=== PATIENT | female | born 1985 | race Caucasian/White ===

== ENCOUNTER 2017-01-06 23:33 | Inpatient (IN) | payer BC ==
[~2017-01-06] VITALS: Ht 157.5 cm; Wt 54.0 kg
[2017-01-06 23:38] VITALS: BP 114/77
--- NOTE | 2017-01-07 00:21 | NUR ---
PT TAKEN TO BED 4
--- NOTE | 2017-01-07 01:01 | NUR ---
31Y/F PATIENT PRESENTS TO ED WITH C/O RT. FLANK PAIN X 1 WK . PT STATES RT LOWER ABD PAIN X 1WK, CHILLS, FEVER TODAY.DENIES N/V/D; SKIN IS PINK/WARM/DRY; AAOX4 WITH EVEN AND STEADY GAIT; LUNGS CLEAR BL; HR EVEN AND REGULAR; PT DENIES ANY FEVER, CP, SOB, OR COUGH AT THIS TIME; PATIENT STATES PAIN OF 9/10 AT THIS TIME; VSS; PATIENT POSITIONED FOR COMFORT; HOB ELEVATED; BEDRAILS UP X2; BED DOWN. ER MD MADE AWARE OF PT STATUS.
--- NOTE | 2017-01-07 01:16 | NUR ---
Dr. Saavedra evaluating patient at bedside.
[2017-01-07] MEDS ORDERED: NACL 0.9% 1,000 ML IV ONE (01:18)
[2017-01-07] MEDS ORDERED: ONDANSETRON 4 MG/2 ML VIAL IVP ONE ×2 (01:20→03:05)
[2017-01-07] MEDS ORDERED: MORPHINE SULFATE 4 MG/ML SYR IVP ONE ×2 (01:20→03:05)
--- NOTE | 2017-01-07 02:04 | NUR ---
PT RETURN FROM CT
[2017-01-07] MEDS ORDERED: PIPERACILLIN/TAZOBACTAM 3.375 GM in DEXTROSE 5% 50 ML IV ONE (03:15)
[2017-01-07] MEDS ORDERED: PIPERACILLIN/TAZOBACTAM 3.375 GM VIAL IV ONE (03:25)
[2017-01-07] MEDS ORDERED: metroNIDAZOLE 500 MG/NS PREMIX 100 ML IV ONE (03:55)
[2017-01-07] MEDS ORDERED: ONDANSETRON 4 MG/2 ML VIAL IVP PRN (04:20)
[2017-01-07] MEDS ORDERED: MORPHINE SULFATE 2 MG/ML SYR IVP PRN ×3 (04:20→14:05)
[2017-01-07] MEDS ORDERED: HYDROcodone/APAP 5/325 MG 1 TAB TAB PO PRN (04:20)
[2017-01-07] MEDS ORDERED: ACETAMINOPHEN 325 MG TAB PO PRN (04:20)
--- NOTE | 2017-01-07 04:36 | NUR ---
Patient will be admitted to care of [facility]. Admited to TELEMETRY. Will go to [id number]. Belongings list completed. Report to GOLDIE BENOIT.
[2017-01-07 04:38] VITALS: BP 89/59
--- NOTE | 2017-01-07 04:38 | NUR ---
RECEIVED REPORT FROM ED RN FOR CONTINUITY OF CARE. 31 Y.O. FEMALE WITH DX: DIVERTICULITIS ADMITTED TO TELE UNIT. PATIENT IS A&OX4, DISCUSSED PLAN OF CARE, VERBALIZED UNDERSTANDING. SHIFT ASSESSMENT DONE, VS TAKEN, STABLE. NO S/S OF RESPIRATORY DISTRESS NOTED ON ROOM AIR. PATIENT DENIES PAIN AT THIS TIME. SKIN INTACT. ORIENTED PT TO ROOM. MRSA SWAB COLLECTED AND WRISTBANDS APPLIED. CALL LIGHT PLACED WITHIN REACH. WILL CONTINUE TO MONITOR.
[2017-01-07] MEDS ORDERED: PIPERACILLIN/TAZOBACTAM 2.25 GM in DEXTROSE 5% 50 ML IV SCH (05:00)
[2017-01-07] MEDS ORDERED: PIPERACILLIN/TAZOBACTAM 3.375 GM in DEXTROSE 5% 50 ML IV SCH (05:00)
[2017-01-07] MEDS: metroNIDAZOLE 500 MG/NS PREMIX 100 ML IV SCH ×3 (05:00→21:01)
[2017-01-07] MEDS: NACL 0.9% 1,000 ML IV SCH ×3 (05:10→21:40)
[2017-01-07] MEDS ORDERED: PIPERACILLIN/TAZOBACTAM 2.25 GM VIAL IV ONE (05:19)
--- NOTE | 2017-01-07 06:00 | NUR ---
PT IS RESTING IN BED. NO S/S OF DISTRESS OR DISCOMFORT NOTED. CALL LIGHT WITHIN REACH.
--- NOTE | 2017-01-07 07:24 | NUR ---
ENDORSED PATIENT TO DAY RN FOR CONTINUITY OF CARE, PATIENT IS IN STABLE CONDITION.
--- NOTE | 2017-01-07 07:53 | NUR ---
PATIENT HAS BEEN SCREENED AND CATEGORIZED MODERATE NUTRITION RISK. PATIENT WILL BE SEEN WITHIN 3-5 DAYS OF ADMISSION. 01/09/17-01/11/[address]
[2017-01-07 08:00] VITALS: BP 88/59
--- NOTE | 2017-01-07 08:00 | NUR ---
RECEIVED REPORT FROM OTILIO AMEZCUA FOR CONTINUITY OF CARE. PATIENT AWAKE A/OX4 NO S/S OF RESP DISTRESS NOTED ABLE TO MAKE NEEDS KNOWN. DENIES ANY PAIN. IV SITE LT AC GAUGE 20 INTACT AND PATENT, IVF INFUSING WELL. PLAN OF CARE DISCUSSED WITH THE PATIENT VITALS STABLE WILL CONTINUE TO MONITOR.
[2017-01-07] MEDS: LACTOBACILLUS RHAMNOSUS GG 1 EACH CAP PO SCH (09:00)
--- NOTE | 2017-01-07 09:20 | NUR ---
RECEIVED REPORT FROM GOLDIE LSAT, PTDaija DOUGHERTY, WILL CONTINUE TO MONITOR
--- NOTE | 2017-01-07 11:25 | NUR ---
CM NOTE PER ELECTRODE CLEANING MACHINE OPERATOR TANESHA EXT [phone], REVIEWS SHOULD BE SENT TO [employer] FAX# [phone] MAIN PHONE# [phone] ATTN: GOPI Andrade REF# [id number]. INITIAL REVIEW SENT TO [employer] FAX# [phone] MAIN PHONE# [phone] ATTN: GOPI Andrade REF# [id number].
--- NOTE | 2017-01-07 11:50 | NUR ---
CHECKED IN ON PATIENT, PT. RESTING COMFORTABLY, WILL CONTINUE TO MONITOR
[2017-01-07] MEDS: PIPER/TAZO 3.375GM/D5W PREMIX 50 ML IV SCH ×2 (12:16→20:04)
--- NOTE | 2017-01-07 12:34 | NUR ---
PT. STATES PAIN 01/11, CHECKED BP, BP 94/60, OFFERED PATIENT TYLENOL OR NORCO FOR PAIN HER BP IS TOO LOW FOR MORPHINE, PT. REFUSED MEDS
--- NOTE | 2017-01-07 13:49 | NUR ---
SPOKE WITH DR. SAUNDERS REGARDING PT. PAIN, HE WILL BE IN TO SPEAK TO PATIENT
[2017-01-07] MEDS: KETOROLAC 15 MG/ML VIAL IVP PRN (14:18)
--- NOTE | 2017-01-07 14:19 | NUR ---
GAVE REPORT TO SERAFIN RN, PT. STABLE
--- NOTE | 2017-01-07 14:23 | NUR ---
RECEIVED REPORT FROM RN. PT RESTING IN BED. NO S/S OF ACUTE DISTRESS. PT MEDICATED FOR PAIN. IV SITE PATENT AND INTACT. CALL LIGHT WITHIN REACH. SAFETY MEASURES WITHIN REACH. WILL CONTINUE TO MONITOR.
--- NOTE | 2017-01-07 14:25 | NUR ---
COMPLAIN OF PAIN MEDICATED WITH TORADOL 15 MG IVP VITALS STABLE 110/66
[2017-01-07 16:37] VITALS: BP 94/63
--- NOTE | 2017-01-07 19:12 | NUR ---
ENDORSED PLAN OF CARE TO NIGHT RN. PT REMAINS IN STABLE CONDITION.
--- NOTE | 2017-01-07 19:30 | NUR ---
RECEIVED REPORT FROM DAY RN AT BEDSIDE, PATIENT SLEEPING, EASILY AWOKEN, PATIENT IS AAO X4, ON ROOM AIR, NO SOB OR SIGN OF DISTRESS AT THIS TIME. PATIENT HAS IV TO LEFT HAND, PATENT AND INTACT WITH IVF INFUSING WELL, PATIENT IS AMBULATORY, DOES NOT COMPLAIN OF PAIN AT THIS TIME, DISCUSSED PLAN OF CARE WITH PATIENT, PATIENT VERBALIZED UNDERSTANDING, SAFETY MEASURES CHECKED, CALL LIGHT WITHIN REACH. WILL CONTINUE TO MONITOR. BP LOW AT 74/40 ALL OTHER VITALS STABLE, PATIENT ASYMPTOMATIC, WILL NOTIFY MD.
--- NOTE | 2017-01-07 19:55 | NUR ---
PAGED DR ARAIZA STEAM CRANE OPERATOR FOR DR PRADHAN, INFORMED OF PATIENT'S LOW BP AND THAT PATIENT IS ASYMPTOMATIC, STATED SHE WILL INCREASE THE FLUIDS, WILL FOLLOW UP WITH ORDERS.
--- NOTE | 2017-01-07 21:10 | NUR ---
ORDERED IV ABX ADMINISTERED PER MD ORDER, PATIENT RESTING IN BED WITH VISITORS AT BEDSIDE, PATIENT ALERT AND ORIENTED, NO SOB OR SIGN OF DISTRESS AT THIS TIME, CALL LIGHT WITHIN REACH. WILL CONTINUE TO MONITOR.
[2017-01-08] VITALS: BP 88/59
--- NOTE | 2017-01-08 00:10 | NUR ---
PATIENT SLEEPING, NO SOB OR SIGN OF DISTRESS, CALL LIGHT WITHIN REACH. WILL CONTINUE TO MONITOR.
[2017-01-08] MEDS: NACL 0.9% 1,000 ML IV SCH ×3 (01:56→20:26)
[2017-01-08] MEDS: KETOROLAC 15 MG/ML VIAL IVP PRN (01:57)
--- NOTE | 2017-01-08 02:20 | NUR ---
PATIENT SLEEPING, NO SOB OR SIGN OF DISTRESS AT THIS TIME, CALL LIGHT WITHIN REACH. WILL CONTINUE TO MONITOR.
--- NOTE | 2017-01-08 04:05 | NUR ---
PATIENT SLEEPING, NO SOB OR SIGN OF DISTRESS AT THIS TIME, CALL LIGHT WITHIN REACH. WILL CONTINUE TO MONITOR.
[2017-01-08] MEDS: PIPER/TAZO 3.375GM/D5W PREMIX 50 ML IV SCH ×3 (04:42→20:25)
[2017-01-08] MEDS: metroNIDAZOLE 500 MG/NS PREMIX 100 ML IV SCH ×3 (05:40→21:33)
--- NOTE | 2017-01-08 07:24 | NUR ---
ENDORSED PATIENT TO DAY RN AT BEDSIDE, PATIENT IN STABLE CONDITION.
--- NOTE | 2017-01-08 07:25 | NUR ---
RECEIVED REPORT FROM THE ASSISTANT MEN'S SOCCER COACH NURSE. PT IS ALERT AND ORIENTED. I INTRODUCED MYSELF AND UPDATED THE BOARD. V/S: 97.8F, 89/56; 64; 98%. PT HAD LOW BP ALL THROUGH OUT THE NIGHT PER ASSISTANT MEN'S SOCCER COACH NURSE. PT IS ASYMPTOMATIC. SKIN IS INTACT. IV L AC NS 150ML/HR. NO COMPLAINTS AT THIS TIME. WILL CONTINUE TO MONITOR PT.
[2017-01-08 08:00] VITALS: BP 89/56
--- NOTE | 2017-01-08 08:49 | NUR ---
GOPI NOTE CONCURRENT REVIEW SENT TO [employer] FAX# [phone] MAIN PHONE# [phone] ATTN: GOPI Andrade REF# [id number].
[2017-01-08] MEDS: LACTOBACILLUS RHAMNOSUS GG 1 EACH CAP PO SCH (08:58)
--- NOTE | 2017-01-08 09:01 | NUR ---
ADMINISTERED 1 ORAL MED W/ VERY LITTLE WATER. PT TOLERATED WELL. DENIES PAIN. CALL LIGHT WITHIN REACH. WILL CONTINUE TO MONITOR PT.
--- NOTE | 2017-01-08 11:00 | NUR ---
PT RESTING COMFORTABLY. BOYFRIEND AT BEDSIDE. PT IS DOING WELL. NO PAIN. WILL CONTINUE TO MONITOR PT.
--- NOTE | 2017-01-08 13:00 | NUR ---
ADMINISTERED ABX TO PT. PT TOLERATED WELL. WILL CONTINUE TO MONITOR PT.
--- NOTE | 2017-01-08 15:00 | NUR ---
PT IS SLEEPING. NO SIGNS OF DISTRESS. WILL CONTINUE TO MONITOR PT.
[2017-01-08 16:00] VITALS: BP 100/68
--- NOTE | 2017-01-08 17:00 | NUR ---
PT RESTING IN BED, VISITING WITH A FRIEND. PT HAS NO COMPLAINTS AT THIS TIME.
--- NOTE | 2017-01-08 19:00 | NUR ---
ENDORSED PT TO THE HOME IMPROVEMENT CONTRACTOR NURSE. PT WAS IN THE BATHROOM. PT IS IN STABLE CONDITION.
--- NOTE | 2017-01-08 19:45 | NUR ---
RECEIVED REPORT FROM DAY RN. PATIENT IS RESTING IN BED, PATIENT IS AAOX4 ON ROOM AIR, NO SOB OR SIGN OF DISTRESS AT THIS TIME. IV TO LEFT AC PATENT AND INTACT. SKIN INTACT, PATIENT DENIES PAIN AT THIS TIME, DISCUSSED PLAN OF CARE WITH PATIENT, PATIENT VERBALIZED UNDERSTANDING, CALL LIGHT WITHIN REACH. WILL CONTINUE TO MONITOR.
--- NOTE | 2017-01-08 21:35 | NUR ---
DUE MEDS ADMINISTERED PER MD ORDER, PATIENT SLEEPING, NO SIGN OF DISTRESS AT THIS TIME, CALL LIGHT WITHIN REACH. WILL CONTINUE TO MONITOR.
[2017-01-09] VITALS: BP 98/64
--- NOTE | 2017-01-09 | NUR ---
VITAL SIGNS STABLE, PATIENT SLEEPING, NO SIGN OF DISTRESS, CALL LIGHT WITHIN REACH. WILL CONTINUE TO MONITOR.
[2017-01-09] MEDS: NACL 0.9% 1,000 ML IV SCH ×3 (00:33→13:34)
--- NOTE | 2017-01-09 02:00 | NUR ---
PATIENT SLEEPING, NO SOB OR SIGN OF DISTRESS AT THIS TIME, CALL LIGHT WITHIN REACH. WILL CONTINUE TO MONITOR.
--- NOTE | 2017-01-09 04:00 | NUR ---
PATIENT AWAKE WATCHING MOVIE, NO SIGN OF DISTRESS, CALL LIGHT WITHIN REACH. WILL CONTINUE TO MONITOR.
[2017-01-09] MEDS: PIPER/TAZO 3.375GM/D5W PREMIX 50 ML IV SCH ×2 (04:12→13:10)
[2017-01-09] MEDS: metroNIDAZOLE 500 MG/NS PREMIX 100 ML IV SCH ×2 (05:33→13:48)
--- NOTE | 2017-01-09 07:30 | NUR ---
RECEIVED REPORT AT BEDSIDE FROM PM SHIFT RN. PT IS AWAKE AND ALERT X 4. BREATHING EVEN & UNLABORED. DENIED CHEST PAIN, SOB, OR ANY DISCOMFORT. RT. HAND IV #22G IV ACCESS INTACT AND PATENT WITH IVF INFUSING @ 150 ML/HR. NO SWELLING OR INFILTRATION AT IV SITE. PLAN OF CARE DISCUSSED W/PT AND SHE VERBALIZED UNDERSTANDING. CALL LIGHT WITHIN REACH.
--- NOTE | 2017-01-09 07:31 | NUR ---
ENDORSED PATIENT FOR CONTINUITY OF CARE TO DAY RN, PATIENT IN STABLE CONDITION
[2017-01-09 08:00] VITALS: BP 108/72
[2017-01-09] MEDS: LACTOBACILLUS RHAMNOSUS GG 1 EACH CAP PO SCH (08:26)
--- NOTE | 2017-01-09 08:26 | NUR ---
SCHEDULED PO MED GIVEN AND TOLERATED WELL BY PT.
--- NOTE | 2017-01-09 12:00 | NUR ---
ROUNDED ON PT. PT DENIED ANY PAIN OR DISCOMFORT. CALL LIGHT WITHIN REACH.
[2017-01-09] MEDS ORDERED: CIPRO500 MG PO (13:23)
[2017-01-09] MEDS ORDERED: FLAGYL250 MG PO (13:23)
[2017-01-09] MEDS ORDERED: BD LACTINEX1.4 MG PO (13:23)
--- NOTE | 2017-01-09 15:30 | NUR ---
WRITTEN AND VERBAL DISCHARGE INSTRUCTIONS GIVEN TO PT AND PT VERBALIZED UNDERSTANDING TO FOLLOW UP WITH [facility] PHYSICIAN, FINISHING COURSE OF PO ABX MEDS, REPORT EARLY S/SX TO DOCTOR, DIET, AND EMERGENCY MANAGEMENT. PT SIGNED ALL HER D/C PAPERWORK AND HAS RX PRESCRIPTIONS. PT HAS ALL HER PERSONAL BELONGING. V/S STABLE. DENIES ANY PAIN OR DISCOMFORT. REMOVED IV CATHETER. TIP OF IV CATH INTACT. NO SWELLING OR INFILTRATION NOTED. SKIN INTACT. NO OPEN WOUNDS NOTED. ID BAND KEPT WITH PT BECAUSE PT STATED " I DON'T " HAVE IT REMOVED" . OFFERED WHEELCHAIR TO FRONT ENTRANCE, PT REFUSED. PT AMBULATORY WITH STEADY GAIT AND LEFT IN STABLE CONDITION.
== END 2017-01-09 15:35 | disposition home or self-care (01) | DRG 391 ==
LOC: MED 23:33 → MTU 01-07 03:54
PROVIDERS: ADMIT Family Medicine; ATTEND Family Medicine
PROC: 30233N1 Transfusion of Nonautologous Red Blood Cells into Peripheral Vein, Percutaneous Approach (ICD-10-PCS; principal; 2017-01-07)
DX: K57.52 Diverticulitis of both small and large intestine without perforation or abscess without bleeding (principal); E43 Unspecified severe protein-calorie malnutrition; N39.0 Urinary tract infection, site not specified; E83.42 Hypomagnesemia; D64.9 Anemia, unspecified; Z68.21 Body mass index [BMI] 21.0-21.9, adult